=== PATIENT | male | born 1940 | race Caucasian/White ===

== ENCOUNTER 2021-04-04 06:27 | Outpatient (CLI) | payer MEDICARE, OTHER | END 2021-04-04 06:28 | disposition critical access hospital (66) | LOC: EMS 06:27 | DX: Z04.3 Encounter for examination and observation following other accident (principal); R53.1 Weakness; R53.83 Other fatigue | CPT/HCPCS: A0425; A0429 ==

== ENCOUNTER 2021-04-04 06:58 | Emergency (ER) | payer MEDICARE, OTHER ==
--- NOTE | 2021-04-04 07:18 | ED Physician Documentation ---
History of Present Illness - Stated complaint Stated Complaint: GLF - Chief complaint Chief Complaint: General - History obtained from History obtained from: Patient - Additonal information Additional information: This is an 81-year-old gentleman with history of kidney cancer, pacemaker placement about 3 weeks ago who presents with a week or so of worsening generalized weakness culminating in a fall this morning. He has had stomach upset and diarrhea. This morning he was in the bathroom trying to have a bowel movement and kind of crumpled down without injury. He denies pain or trauma. Note made of his temperature, 37.9 on triage. Although he does not endorse fevers or chills specifically he states "I have been a little cold." Also has cough and runny nose, but the runny nose is chronic. Review of Systems Ten Systems: 10 systems reviewed and negative Constitutional: reports: Chills, Fatigue. denies: Fever Nose: reports: Rhinorrhea / runny nose Throat: denies: Sore throat Respiratory: reports: Cough GI: reports: Nausea, Diarrhea. denies: Vomiting PD PAST MEDICAL HISTORY - Past Medical History Cardiovascular: Hypertension, High cholesterol : Renal insuffiency Musculoskeletal: Gout - Past Surgical History Past Surgical History: Yes Ortho: Knee replacement Cardiovascular: Valve replacement - Present Medications Home Medications: Ambulatory Orders Medication Instructions Recorded Confirmed Aspirin [Aspir 81] 12/27/14 12/27/14 Colchicine [Colcrys] 0.6 mg PO Q8H PRN #6 tablet 12/27/14 HYDROcod/ACETAM 5/325 [[place] 5/325] 1 - 2 ea PO Q6H PRN #15 tablet 12/27/14 Metoprolol Tartrate 25 mg PO DAILY 12/27/14 12/27/14 Multivitamin [Multivitamins] 12/27/14 12/27/14 Pravastatin Sodium 20 mg PO DAILY 12/27/14 12/27/14 allopurinoL [Allopurinol] 150 mg PO DAILY 12/27/14 12/27/14 gemfibroziL [Gemfibrozil] 600 mg PO DAILY 12/27/14 12/27/14 - Allergies Allergies/Adverse Reactions: Allergies Allergy/AdvReac Type Severity Reaction Status Date / Time No Known Drug Allergies Allergy Verified 04/04/21 07:03 - Social History Does the pt smoke?: No Smoking Status: Former smoker Does the pt have substance abuse?: No - Family History Family history: reports: Non contributory - POLST Patient has POLST: No PD ED PE NORMAL - Vitals Vital signs reviewed: Yes - General General: Alert and oriented X 3, No acute distress - HEENT HEENT: PERRL, EOMI - Neck Neck: Supple, no meningeal sign, No bony TTP - Cardiac Cardiac: RRR, Other (Subtle systolic murmur) - Respiratory Respiratory: No respiratory distress, Clear bilaterally - Abdomen Abdomen: Normal bowel sounds, Soft, Non tender - Back Back: No CVA TTP, No spinal TTP - Derm Derm: Normal color, Warm and dry - Extremities Extremities: No edema, No calf tenderness / cord - Neuro Neuro: Alert and oriented X 3, Normal speech, Other (Generally weak, unable to sit up unassisted.) Results - Vitals Vitals: Vital Signs - 24 hr 04/04/21 04/04/21 04/04/21 07:03 07:27 08:39 Temperature 37.9 C Heart Rate 88 70 68 Respiratory 16 22 Rate Blood Pressure 105/55 L 112/57 L O2 Saturation 96 95 04/04/21 04/04/21 04/04/21 08:41 09:16 09:30 Temperature Heart Rate 68 68 68 Respiratory 20 19 16 Rate Blood Pressure 106/53 L 110/51 L O2 Saturation 94 95 94 04/04/21 04/04/21 04/04/21 09:57 10:00 10:06 Temperature Heart Rate 65 68 68 Respiratory 15 16 16 Rate Blood Pressure 110/51 L 113/49 L 113/49 L O2 Saturation 97 97 97 04/04/21 04/04/21 04/04/21 10:30 10:59 11:00 Temperature Heart Rate 68 68 68 Respiratory 16 15 17 Rate Blood Pressure 112/56 L 112/56 L 104/52 L O2 Saturation 98 99 97 04/04/21 04/04/21 04/04/21 11:30 12:00 12:07 Temperature Heart Rate 69 69 69 Respiratory 16 16 16 Rate Blood Pressure 111/54 L 107/56 L 107/56 L O2 Saturation 100 100 100 04/04/21 04/04/21 04/04/21 12:30 13:00 13:30 Temperature Heart Rate 69 67 67 Respiratory 19 20 19 Rate Blood Pressure 116/59 L 119/59 L 115/58 L O2 Saturation 100 97 97 04/04/21 04/04/21 04/04/21 14:00 14:30 15:00 Temperature Heart Rate 67 68 68 Respiratory 19 16 20 Rate Blood Pressure 132/59 H 132/55 H 125/56 L O2 Saturation 95 98 96 04/04/21 04/04/21 15:24 15:30 Temperature 36.8 C Heart Rate 66 67 Respiratory 17 17 Rate Blood Pressure 125/56 L 123/56 L O2 Saturation 94 97 Oxygen O2 Source Room air - EKG (time done) 0740 Rate: Rate (enter#) (69) Rhythm: NSR Intervals: Prolonged [place], RBBB, Other (LAFB) QRS: LVH Ischemia: Non specific changes (Anterior T wave inversion) Compare to prior EKG: Old EKG unavailable (No priors available, could be consistent with ischemia but he does not have angina.) Computer interpretation: Agree with computer 0833 Rate: Rate (enter#) (68) Rhythm: NSR [place]: Normal Intervals: Prolonged KS QRS: Normal Ischemia: Non specific changes (less TWI than first EKG) - Labs Labs: Laboratory Tests 04/04/21 04/04/21 04/04/21 07:29 07:29 07:29 WBC 3.0 L RBC 3.35 L Hgb 9.6 L Hct 30.0 L MCV 89.6 MCH 28.7 MCHC 32.0 RDW 14.8 Plt Count 205 MPV 10.8 Neut # (Auto) Not Reportable Lymph # (Auto) Not Reportable [place] # (Auto) Not Reportable Eos # (Auto) Not Reportable Baso # (Auto) Not Reportable Absolute Nucleated RBC Not Reportable Total Counted 100 Band Neuts % (Manual) 1 Abnorm Lymph % (Manual) 0 Nucleated RBC % Not Reportable Neutrophils # (Manual) 2.0 Lymphocytes # (Manual) 0.4 L Monocytes # (Manual) 0.6 Eosinophils # (Manual) 0.0 Basophils # (Manual) 0.0 Differential Comment MANUAL DIFFERENTIAL WBC Morphology 1+ VACUOLATION Platelet Estimate NORMAL (130-450,000) Platelet Morphology NORMAL APPEARANCE RBC Morph Micro Appear 1+ HYPOCHROMASIA Sodium 131 L Potassium 4.3 Chloride 104 Carbon Dioxide 13 L Anion Gap 14.0 H BUN 101 H* Creatinine 6.6 H Estimated GFR (MDRD) 8 L Glucose 99 Lactic Acid Calcium 7.7 L Total Bilirubin 0.6 AST 28 ALT 19 Alkaline Phosphatase 64 Troponin I High Sens 140.9 H* B-Natriuretic Peptide Total Protein 5.8 L Albumin 2.4 L Globulin 3.4 Albumin/Globulin Ratio 0.7 L Nasal Adenovirus (PCR) Nasal B. parapertussis DNA (PCR) Nasal Coronavir 229E PCR Nasal Coronavir HKU1 PCR Nasal Coronavir NL63 PCR Nasal Coronavir OC43 PCR Nasal Enterovir/Rhinovir PCR Nasal Influenza B PCR Nasal Influenza A PCR Nasal Parainfluen 1 PCR Nasal Parainfluen 2 PCR Nasal Parainfluen 3 PCR Nasal Parainfluen 4 PCR Nasal RSV (PCR) Nasal B.pertussis DNA PCR Nasal C.pneumoniae (PCR) Edgar Human Metapneumo PCR Nasal M.pneumoniae (PCR) Nasal SARS-CoV-2 (PCR) 04/04/21 04/04/21 04/04/21 07:29 07:29 07:49 WBC RBC Hgb Hct MCV MCH MCHC RDW Plt Count MPV Neut # (Auto) Lymph # (Auto) [place] # (Auto) Eos # (Auto) Baso # (Auto) Absolute Nucleated RBC Total Counted Band Neuts % (Manual) Abnorm Lymph % (Manual) Nucleated RBC % Neutrophils # (Manual) Lymphocytes # (Manual) Monocytes # (Manual) Eosinophils # (Manual) Basophils # (Manual) Differential Comment WBC Morphology Platelet Estimate Platelet Morphology RBC Morph Micro Appear Sodium Potassium Chloride Carbon Dioxide Anion Gap BUN Creatinine Estimated GFR (MDRD) Glucose Lactic Acid 0.8 Calcium Total Bilirubin AST ALT Alkaline Phosphatase Troponin I High Sens B-Natriuretic Peptide 247 H Total Protein Albumin Globulin Albumin/Globulin Ratio Nasal Adenovirus (PCR) NOT DETECTED Nasal B. parapertussis DNA (PCR) NOT DETECTED Nasal Coronavir 229E PCR NOT DETECTED Nasal Coronavir HKU1 PCR NOT DETECTED Nasal Coronavir NL63 PCR NOT DETECTED Nasal Coronavir OC43 PCR NOT DETECTED Nasal Enterovir/Rhinovir PCR NOT DETECTED Nasal Influenza B PCR NOT DETECTED Nasal Influenza A PCR NOT DETECTED Nasal Parainfluen 1 PCR NOT DETECTED Nasal Parainfluen 2 PCR NOT DETECTED Nasal Parainfluen 3 PCR NOT DETECTED Nasal Parainfluen 4 PCR NOT DETECTED Nasal RSV (PCR) NOT DETECTED Nasal B.pertussis DNA PCR NOT DETECTED Nasal C.pneumoniae (PCR) NOT DETECTED Edgar Human Metapneumo PCR NOT DETECTED Nasal M.pneumoniae (PCR) NOT DETECTED Nasal SARS-CoV-2 (PCR) NOT DETECTED 04/04/21 09:38 WBC RBC Hgb Hct MCV MCH MCHC RDW Plt Count MPV Neut # (Auto) Lymph # (Auto) [place] # (Auto) Eos # (Auto) Baso # (Auto) Absolute Nucleated RBC Total Counted Band Neuts % (Manual) Abnorm Lymph % (Manual) Nucleated RBC % Neutrophils # (Manual) Lymphocytes # (Manual) Monocytes # (Manual) Eosinophils # (Manual) Basophils # (Manual) Differential Comment WBC Morphology Platelet Estimate Platelet Morphology RBC Morph Micro Appear Sodium Potassium Chloride Carbon Dioxide Anion Gap BUN Creatinine Estimated GFR (MDRD) Glucose Lactic Acid Calcium Total Bilirubin AST ALT Alkaline Phosphatase Troponin I High Sens 142.9 H* B-Natriuretic Peptide Total Protein Albumin Globulin Albumin/Globulin Ratio Nasal Adenovirus (PCR) Nasal B. parapertussis DNA (PCR) Nasal Coronavir 229E PCR Nasal Coronavir HKU1 PCR Nasal Coronavir NL63 PCR Nasal Coronavir OC43 PCR Nasal Enterovir/Rhinovir PCR Nasal Influenza B PCR Nasal Influenza A PCR Nasal Parainfluen 1 PCR Nasal Parainfluen 2 PCR Nasal Parainfluen 3 PCR Nasal Parainfluen 4 PCR Nasal RSV (PCR) Nasal B.pertussis DNA PCR Nasal C.pneumoniae (PCR) Edgar Human Metapneumo PCR Nasal M.pneumoniae (PCR) Nasal SARS-CoV-2 (PCR) PD MEDICAL DECISION MAKING - ED course ED course: 81-year-old gentleman with recent pacemaker placement presents with generalized weakness culminating in a fall that he could not get up from this morning but without injury. Examination demonstrates weakness and subtle murmur. Work-up demonstrates what looks like acute prerenal failure with acidosis. Elevated troponin and concerning EKG but without any ischemic chest pain so not specifically acted upon except that he was given aspirin and the EKG was repeated. was updated by phone. He will need transfer to a facility capable of cardiology and nephrology consultation and patient's request [facility] call [facility] to [facility] If they are full, second request would be [facility] in [place]. He was started on a bicarb drip. Both hospitals are full, but [facility] will hopefully have openings later in the day. Recheck of troponins without significant delta change. Case was discussed with the continuous conveyor screen drier at [facility], Dr. Mccartney who does not feel there is an acute coronary issue brewing and I agree. I discussed the case with the water quality specialist to the [facility] (Yahaira Ribeiro) who felt like the patient could go to any facility and recommended we look closer. I discussed with him that we already had looked at closer facilities which were at or past capacity. Accepted by the hospitalist to [facility] at approximately 11:25 AM pending bed availability, which is tenuous. The case was also presented to Dr. Orlando Gonzalez hospitalist at [facility] who will also accept pending bed availability. Bladder scan 126 suggestive against urinary retention and given that he has been in the department for quite some time suggestive for decreased urine output due to hypovolemia. Subsequently the bed was confirmed at [facility] and cobras are completed. Departure - Departure Disposition: 02 Transfer Acute Care Hosp Clinical Impression: Elevated troponin, Weakness Renal failure Qualifiers: Renal failure chronicity: acute Acute renal failure type: unspecified Qualified Code(s): N17.9 - Acute kidney failure, unspecified Condition: Serious
[2021-04-04 07:38] LABS: EOSINOPHILS % (AUTO) 0.3 %; HGB - HEMOGLOBIN 9.6 g/dL (14.0-18.0); LYMPHOCYTES % (AUTO) 10.4 %; MEAN CORPUSCULAR HEMOGLOBIN 28.7 pg (27.0-31.0); MEAN CORPUSCULAR VOLUME 89.6 fL (80.0-94.0); MEAN PLATELET VOLUME 10.8 fL (7.4-11.4); MONOCYTES % (AUTO) 13.5 %; NEUTROPHILS % (AUTO) 72.8 %; PLT - PLATELET COUNT 205 10^3/uL (130-450); RED BLOOD COUNT 3.35 10^6/uL (4.70-6.10); RED CELL DISTRIBUTION WIDTH 14.8 % (12.0-15.0)
[2021-04-04 07:55] LABS: ABNORMAL LYMPHS % (MANUAL) 0 %
[2021-04-04] MEDS ORDERED: ASPIRIN CHEW 81 MG TABLET PO STA (08:13)
[2021-04-04 08:25] LABS: ALBUMIN 2.4 g/dL (3.2-5.5); ALBUMIN/GLOBULIN RATIO 0.7 (1.0-2.2); BILIRUBIN,TOTAL 0.6 mg/dL (0.2-1.0); CALCIUM 7.7 mg/dL (8.5-10.3); CREATININE 6.6 mg/dL (0.6-1.2); POTASSIUM 4.3 mmol/L (3.5-5.0); TOTAL PROTEIN 5.8 g/dL (6.7-8.2)
[2021-04-04 08:31] LABS: BAND NEUTROPHILS % (MANUAL) 1 %; BASOPHILS % (MANUAL) 1 %; DIFFERENTIAL COMMENT MANUAL DIFFERENTIAL; LYMPHOCYTES # (MANUAL) 0.4 10^3/uL (1.5-3.5); LYMPHOCYTES % (MANUAL) 14 %; MONOCYTES # (MANUAL) 0.6 10^3/uL (0.0-1.0); PLATELET ESTIMATE, MANUAL NORMAL (130-450,000) (NORMAL); PLATELET MORPHOLOGY NORMAL APPEARANCE (NORMAL); RBC MORPHOLOGY (MULTIPLE) 1+ HYPOCHROMASIA (NORMAL)
[2021-04-04 08:32] LABS: WBC MORPHOLOGY (MULTIPLE) 1+ VACUOLATION (NORMAL)
[2021-04-04 08:44] LABS: B. PARAPERTUSSIS- RESP PCR PAN NOT DETECTED; B. PERTUSSIS- RESP PCR PANEL NOT DETECTED; C. PNEUMONIAE- RESP PCR PANEL NOT DETECTED; CORONAVIRUS 229E-RESP PCR NOT DETECTED; CORONAVIRUS HKU1-RESP PCR NOT DETECTED; CORONAVIRUS NL63-RESP PCR NOT DETECTED; CORONAVIRUS OC43-RESP PCR NOT DETECTED; HUMAN METAPNEUMOVIRUS NOT DETECTED; INFLUENZA A- RESP PCR PANEL NOT DETECTED; INFLUENZA B - RESP PCR PANEL NOT DETECTED; M. PNEUMONIAE- RESP PCR PANEL NOT DETECTED; PARAINFLUENZA VIRUS 1 NOT DETECTED; PARAINFLUENZA VIRUS 2 NOT DETECTED; PARAINFLUENZA VIRUS 3 NOT DETECTED; PARAINFLUENZA VIRUS 4 NOT DETECTED; RHINOVIRUS/ENTEROVIRUS NOT DETECTED; RSV- RESP PCR PANEL NOT DETECTED; SARS-CoV-2 -RESP PCR PANEL NOT DETECTED
[2021-04-04] MEDS ORDERED: SODIUM BICARBONATE 150 MEQ in DEXTROSE 5% 1,000 ML IV SCH ×2 (09:00→14:00)
--- NOTE | 2021-04-04 09:31 | XRAY Report ---
PROCEDURE: Chest 1 View X-Ray INDICATIONS: renal failure, poss chf TECHNIQUE: One view of the chest was acquired. COMPARISON: None FINDINGS: Surgical changes and devices: Sternotomy and an aortic valve prosthesis can be seen. A pacer device can be seen. Lungs and pleura: An incomplete inspiratory result is noted, with low lung volumes and crowding of t he vascular markings. No focal infiltrates are seen. No large pneumothorax or large pleural effusion can be seen. There is elevation of the right hemidiaphragm. Mediastinum: Mediastinal contours appear normal. Heart size is mildly enlarged. Calcification is s een of the aortic arch. Bones and chest wall: No suspicious bony lesions. Age-appropriate degenerative changes are seen. No displaced rib fractures are seen. Overlying soft tissues appear unremarkable. IMPRESSION: Mild thyromegaly. Clear lungs, without pulmonary edema seen at this time. Low lung volumes. Elevation of the right hemidiaphragm noted. No displaced rib fractures are seen. No pneumothorax. Postoperative and degenerative changes are seen. Reviewed by: Esteban Roach MD on 04/04/2021 8:30 AM [facility] Approved by: Esteban Roach MD on 04/04/2021 8:30 AM [facility] Station ID: [id number]
[2021-04-04 21:05] VITALS: BP 130/56
== END 2021-04-04 21:39 | disposition short-term general hospital (02) ==
LOC: EDUNIT# → ED 06:58
DX: N17.9 Acute kidney failure, unspecified (principal); R53.1 Weakness; R79.89 Other specified abnormal findings of blood chemistry; E86.1 Hypovolemia; I45.2 Bifascicular block; I44.0 Atrioventricular block, first degree; I10 Essential (primary) hypertension; Z95.0 Presence of cardiac pacemaker; Z95.2 Presence of prosthetic heart valve; Z79.82 Long term (current) use of aspirin; Z85.528 Personal history of other malignant neoplasm of kidney; Z87.891 Personal history of nicotine dependence; Z20.822 Contact with and (suspected) exposure to COVID-19
CPT/HCPCS: 36415; 51798; 71045; 80053; 83605; 83880; 84484; 85025; 87040; 87631; 93005; 96365; 96366; 99285; A9270; 0202U

== ENCOUNTER 2022-07-05 14:38 | Emergency (ER) | payer MEDICARE, OTHER ==
[2022-07-05 15:39] LABS: ALBUMIN 3.2 g/dL (3.2-5.5); ALBUMIN/GLOBULIN RATIO 0.8 (1.0-2.2); BILIRUBIN,TOTAL 0.6 mg/dL (0.2-1.0); CALCIUM 8.3 mg/dL (8.5-10.3); CREATININE 3.8 mg/dL (0.6-1.2); POTASSIUM 4.5 mmol/L (3.5-5.0); TOTAL PROTEIN 7.1 g/dL (6.7-8.2)
[2022-07-05 15:41] LABS: EOSINOPHILS # (AUTO) 0.2 10^3/uL (0.0-0.7); EOSINOPHILS % (AUTO) 6.7 %; LYMPHOCYTES # (AUTO) 0.5 10^3/uL (1.5-3.5); LYMPHOCYTES % (AUTO) 14.2 %; MEAN CORPUSCULAR HEMOGLOBIN 28.6 pg (27.0-31.0); MEAN CORPUSCULAR HGB CONC 31.7 g/dL (32.0-36.0); MEAN CORPUSCULAR VOLUME 90.3 fL (80.0-94.0); MONOCYTES # (AUTO) 0.4 10^3/uL (0.0-1.0); MONOCYTES % (AUTO) 10.3 %; NEUTROPHILS # (AUTO) 2.5 10^3/uL (1.5-6.6); NEUTROPHILS % (AUTO) 68.2 %; PLT - PLATELET COUNT 88 10^3/uL (130-450); RED BLOOD COUNT 2.06 10^6/uL (4.70-6.10); RED CELL DISTRIBUTION WIDTH 17.3 % (12.0-15.0); WHITE BLOOD COUNT 3.6 x10^3/uL (4.8-10.8)
[2022-07-05 15:45] LABS: HCT - HEMATOCRIT 18.6 % (42.0-52.0); HGB - HEMOGLOBIN 5.9 g/dL (14.0-18.0); SLIDE REVIEW? Indicated
--- OUTSIDE RECORDS SUMMARY | 2022-07-05 15:46 | EXTERNAL MEDICAL SUMMARY RPT | Continuity of Care Document ---
:1940 Author Organization [facility] Address [address] [place] [address] Phone Care Team Providers Name Role Phone Unavailable Unavailable Unavailable Ann Marie Richard, Zac Unavailable Unavailable Melvina Patient Registrar, Marry Unavailable Nguyen arias Elsa, Provider Unavailable Unavailable Allergies No information. Encounters No information. Functional Status No information. Immunizations No information. Medications date description facility 2022-04-23 00:00 molnupiravir All 2022-04-23 00:00 molnupiravir All 2022-04-27 00:00 molnupiravir All 2022-04-23 00:00 finasteride All 2022-04-23 00:00 finasteride All 2022-04-27 00:00 finasteride All 2022-04-23 00:00 aspirin All 2022-04-23 00:00 aspirin All 2022-04-27 00:00 aspirin All 2022-04-23 00:00 furosemide All 2022-04-23 00:00 furosemide All 2022-04-27 00:00 furosemide All 2022-04-23 00:00 metoprolol succinate All 2022-04-23 00:00 metoprolol succinate All 2022-04-27 00:00 metoprolol succinate All 2022-04-23 00:00 metoprolol succinate All 2022-04-23 00:00 metoprolol succinate All 2022-04-27 00:00 metoprolol succinate All 2022-04-23 00:00 allopurinol All 2022-04-23 00:00 allopurinol All 2022-04-27 00:00 allopurinol All 2022-04-23 00:00 allopurinol All 2022-04-23 00:00 allopurinol All 2022-04-27 00:00 allopurinol All 2022-04-23 00:00 amoxicillin-pot clavulanate All 2022-04-23 00:00 amoxicillin-pot clavulanate All 2022-04-23 00:00 amoxicillin-pot clavulanate All 2022-04-23 00:00 amoxicillin-pot clavulanate All 2022-04-23 00:00 rivaroxaban All 2022-04-23 00:00 rivaroxaban All 2022-04-27 00:00 rivaroxaban All 2022-04-23 00:00 molnupiravir All 2022-04-23 00:00 molnupiravir All 2022-04-27 00:00 molnupiravir All 2022-04-23 00:00 aspirin All 2022-04-23 00:00 aspirin All 2022-04-27 00:00 aspirin All 2022-04-23 00:00 tamsulosin All 2022-04-23 00:00 tamsulosin All 2022-04-27 00:00 tamsulosin All 2022-04-23 00:00 rivaroxaban All 2022-04-23 00:00 rivaroxaban All 2022-04-27 00:00 rivaroxaban All 2022-04-23 00:00 allopurinol All 2022-04-23 00:00 allopurinol All 2022-04-27 00:00 allopurinol All 2022-04-23 00:00 allopurinol All 2022-04-23 00:00 allopurinol All 2022-04-27 00:00 allopurinol All 2022-04-23 00:00 amlodipine All 2022-04-23 00:00 amlodipine All 2022-04-27 00:00 amlodipine All 2022-04-23 00:00 benzonatate All 2022-04-23 00:00 benzonatate All 2022-04-23 00:00 molnupiravir All 2022-04-23 00:00 molnupiravir All 2022-04-27 00:00 molnupiravir All 2022-04-23 00:00 amlodipine All 2022-04-23 00:00 amlodipine All 2022-04-27 00:00 amlodipine All 2022-04-23 00:00 amlodipine All 2022-04-23 00:00 amlodipine All 2022-04-27 00:00 amlodipine All 2022-04-23 00:00 molnupiravir All 2022-04-23 00:00 molnupiravir All 2022-04-27 00:00 molnupiravir All 2022-04-23 00:00 finasteride All 2022-04-23 00:00 finasteride All 2022-04-27 00:00 finasteride All 2022-04-23 00:00 benzonatate All 2022-04-23 00:00 benzonatate All 2022-04-23 00:00 amlodipine All 2022-04-23 00:00 amlodipine All 2022-04-27 00:00 amlodipine All 2022-04-23 00:00 finasteride All 2022-04-23 00:00 finasteride All 2022-04-27 00:00 finasteride All 2022-04-23 00:00 furosemide All 2022-04-23 00:00 furosemide All 2022-04-27 00:00 furosemide All 2022-04-23 00:00 metoprolol succinate All 2022-04-23 00:00 metoprolol succinate All 2022-04-27 00:00 metoprolol succinate All 2022-04-23 00:00 metoprolol succinate All 2022-04-23 00:00 metoprolol succinate All 2022-04-27 00:00 metoprolol succinate All 2022-04-23 00:00 amlodipine All 2022-04-23 00:00 amlodipine All 2022-04-27 00:00 amlodipine All 2022-04-23 00:00 amlodipine All 2022-04-23 00:00 amlodipine All 2022-04-27 00:00 amlodipine All 2022-04-23 00:00 furosemide All 2022-04-23 00:00 furosemide All 2022-04-27 00:00 furosemide All 2022-04-23 00:00 atorvastatin All 2022-04-23 00:00 atorvastatin All 2022-04-27 00:00 atorvastatin All 2022-04-23 00:00 benzonatate All 2022-04-23 00:00 benzonatate All 2022-04-23 00:00 atorvastatin All 2022-04-23 00:00 atorvastatin All 2022-04-27 00:00 atorvastatin All 2022-04-23 00:00 rivaroxaban All 2022-04-23 00:00 rivaroxaban All 2022-04-27 00:00 rivaroxaban All 2022-04-23 00:00 finasteride All 2022-04-23 00:00 finasteride All 2022-04-27 00:00 finasteride All 2022-04-23 00:00 tamsulosin All 2022-04-23 00:00 tamsulosin All 2022-04-27 00:00 tamsulosin All 2022-04-23 00:00 amlodipine All 2022-04-23 00:00 amlodipine All 2022-04-27 00:00 amlodipine All 2022-04-23 00:00 amlodipine All 2022-04-23 00:00 amlodipine All 2022-04-27 00:00 amlodipine All 2022-04-23 00:00 amoxicillin-pot clavulanate All 2022-04-23 00:00 amoxicillin-pot clavulanate All 2022-04-23 00:00 atorvastatin All 2022-04-23 00:00 atorvastatin All 2022-04-27 00:00 atorvastatin All 2022-04-23 00:00 atorvastatin All 2022-04-23 00:00 atorvastatin All 2022-04-27 00:00 atorvastatin All 2022-04-23 00:00 aspirin All 2022-04-23 00:00 aspirin All 2022-04-27 00:00 aspirin All 2022-04-23 00:00 tamsulosin All 2022-04-23 00:00 tamsulosin All 2022-04-27 00:00 tamsulosin All 2022-04-23 00:00 allopurinol All 2022-04-23 00:00 allopurinol All 2022-04-27 00:00 allopurinol All 2022-04-23 00:00 allopurinol All 2022-04-23 00:00 allopurinol All 2022-04-27 00:00 allopurinol All 2022-04-23 00:00 benzonatate All 2022-04-23 00:00 benzonatate All 2022-04-23 00:00 metoprolol succinate All 2022-04-23 00:00 metoprolol succinate All 2022-04-27 00:00 metoprolol succinate All 2022-04-23 00:00 metoprolol succinate All 2022-04-23 00:00 metoprolol succinate All 2022-04-27 00:00 metoprolol succinate All 2022-04-23 00:00 amoxicillin-pot clavulanate All 2022-04-23 00:00 amoxicillin-pot clavulanate All 2022-04-23 00:00 rivaroxaban All 2022-04-23 00:00 rivaroxaban All 2022-04-27 00:00 rivaroxaban All 2022-04-23 00:00 tamsulosin All 2022-04-23 00:00 tamsulosin All 2022-04-27 00:00 tamsulosin All 2022-04-23 00:00 allopurinol All 2022-04-23 00:00 allopurinol All 2022-04-27 00:00 allopurinol All 2022-04-23 00:00 allopurinol All 2022-04-23 00:00 allopurinol All 2022-04-27 00:00 allopurinol All 2022-04-23 00:00 metoprolol succinate All 2022-04-23 00:00 metoprolol succinate All 2022-04-27 00:00 metoprolol succinate All 2022-04-23 00:00 metoprolol succinate All 2022-04-23 00:00 metoprolol succinate All 2022-04-27 00:00 metoprolol succinate All 2022-04-23 00:00 furosemide All 2022-04-23 00:00 furosemide All 2022-04-27 00:00 furosemide All Problems date description facility 2022-04-23 00:00 Chronic sinusitis All 2022-04-23 00:00 Chronic sinusitis All 2022-04-23 00:00 Unspecified sinusitis (chronic) All 2022-04-23 00:00 Unspecified sinusitis (chronic) All 2022-04-23 00:00 Cough All 2022-04-23 00:00 Cough All 2022-04-23 00:00 Chronic sinusitis, unspecified All 2022-04-23 00:00 Chronic sinusitis, unspecified All 2022-04-23 00:00 Other specified cough All 2022-04-23 00:00 Other specified cough All Procedures date description facility 2022-04-23 00:00 Visit Code Hold All 2022-04-23 00:00 Visit Code Hold All 2022-04-23 00:00 COVID, FLU A+B Antigen (In Clinic Free Test) All 2022-04-23 00:00 COVID, FLU A+B Antigen (In Clinic Free Test) All Results/Labs No information. Social History date description facility 2022-04-23 00:00 Unknown if ever smoked All 2022-04-23 00:00 Unknown if ever smoked All 2022-04-27 00:00 Unknown if ever smoked All Vital Signs date measurement value units 2022-04-23 00:00 BMI 30.67 kg/m2 2022-04-23 00:00 BP_diastolic 93 mmHg 2022-04-23 00:00 BP_systolic 158 mmHg 2022-04-23 00:00 heart_rate 93 /min 2022-04-23 00:00 height_metric 177.8 cm 2022-04-23 00:00 height_standard 70 in 2022-04-23 00:00 respiration_rate 17 /min 2022-04-23 00:00 temperature_metric 36.28 C 2022-04-23 00:00 temperature_standard 97.3 F 2022-04-23 00:00 weight_metric 96.62 kg 2022-04-23 00:00 weight_standard 213 lb
--- NOTE | 2022-07-05 16:06 | ED Physician Documentation ---
History of Present Illness - Stated complaint Stated Complaint: LOW BLOOD COUNT - Chief complaint Chief Complaint: General - History obtained from History obtained from: Patient, Family - History of Present Illness Timing: Today Pain level max: 0 Pain level now: 0 - Additonal information Additional information: Patient is an 82-year-old male who presents to the emergency department stating that he was at [facility] for approximately 2 weeks, was discharged about a week ago. He states that he received approximately 9 units of blood during that time and had "every test you can think of". He states they could not find a reason for why he was anemic. He states that he went to [facility] today and had blood work done, they called him and told him to go to an emergency department for evaluation. Patient is currently asymptomatic. He is unsure why he is here. Review of Systems Constitutional: denies: Fever, Chills Nose: denies: Rhinorrhea / runny nose, Congestion Throat: denies: Sore throat Cardiac: denies: Chest pain / pressure, Palpitations Respiratory: denies: Cough GI: denies: Abdominal Pain, Vomiting, Diarrhea Skin: denies: Rash Musculoskeletal: denies: Neck pain, Back pain Neurologic: denies: Headache PD PAST MEDICAL HISTORY - Past Medical History Cardiovascular: Hypertension, High cholesterol : Renal insuffiency Musculoskeletal: Gout - Past Surgical History Past Surgical History: Yes Ortho: Knee replacement Cardiovascular: Valve replacement - Present Medications Home Medications: Ambulatory Orders Medication Instructions Recorded Confirmed Aspirin [Aspir 81] 12/27/14 12/27/14 Colchicine [Colcrys] 0.6 mg PO Q8H PRN #6 tablet 12/27/14 Multivitamin [Multivitamins] 12/27/14 12/27/14 Pravastatin Sodium 20 mg PO DAILY 12/27/14 12/27/14 allopurinoL [Allopurinol] 150 mg PO DAILY 12/27/14 12/27/14 gemfibroziL [Gemfibrozil] 600 mg PO DAILY 12/27/14 12/27/14 Apixaban [Eliquis] 2.5 mg PO BID 07/05/22 07/05/22 Metoprolol Succinate [Toprol Xl] 50 mg PO DAILY 07/05/22 07/05/22 Pantoprazole [Protonix] 40 mg PO DAILY 07/05/22 07/05/22 calcitrioL [Rocaltrol] 0.25 mcg PO DAILY 07/05/22 07/05/22 - Allergies Allergies/Adverse Reactions: Allergies Allergy/AdvReac Type Severity Reaction Status Date / Time No Known Drug Allergies Allergy Verified 07/05/22 16:21 - Social History Does the pt smoke?: No Smoking Status: Former smoker Does the pt have substance abuse?: No - POLST Patient has POLST: No PD ED PE NORMAL - Vitals Vital signs reviewed: Yes - General General: Alert and oriented X 3, No acute distress - HEENT HEENT: Moist mucous membranes - Neck Neck: Supple, no meningeal sign - Cardiac Cardiac: RRR, Strong equal pulses - Respiratory Respiratory: No respiratory distress, Clear bilaterally - Abdomen Abdomen: Soft, Non tender, Non distended - Back Back: No spinal TTP - Derm Derm: Warm and dry, No rash - Neuro Neuro: Alert and oriented X 3 - Psych Psych: Normal mood, Normal affect Results - Vitals Vitals: Vital Signs - 24 hr 07/05/22 07/05/22 07/05/22 14:49 16:12 18:01 Temperature 36.3 C L 36.9 C Heart Rate 82 64 Heart Rate [ 64 Monitoring electrodes] Respiratory 16 9 L 15 Rate Blood Pressure 116/62 123/60 Blood Pressure 115/71 [Left Brachial artery] O2 Saturation 100 100 99 07/05/22 07/05/22 07/05/22 18:23 19:00 19:51 Temperature 37.1 C 37.4 C Heart Rate Heart Rate [ 64 64 64 Monitoring electrodes] Respiratory 15 17 16 Rate Blood Pressure Blood Pressure 113/54 L 128/47 L 137/63 H [Left Brachial artery] O2 Saturation 99 100 100 07/05/22 07/05/22 07/05/22 20:12 20:18 20:27 Temperature 37.4 C 37.4 C Heart Rate 65 Heart Rate [ 62 65 Monitoring electrodes] Respiratory 17 16 17 Rate Blood Pressure 115/58 L Blood Pressure 115/58 L 118/64 [Left Brachial artery] O2 Saturation 99 100 99 07/05/22 07/05/22 21:00 21:38 Temperature 37.1 C 37.1 C Heart Rate Heart Rate [ 62 64 Monitoring electrodes] Respiratory 18 18 Rate Blood Pressure Blood Pressure 137/66 H 128/59 L [Left Brachial artery] O2 Saturation 100 100 Oxygen O2 Source Room air - Labs Labs: Laboratory Tests 07/05/22 07/05/22 07/05/22 15:20 15:20 15:20 WBC 3.6 L RBC 2.06 L Hgb 5.9 L* Hct 18.6 L* MCV 90.3 MCH 28.6 MCHC 31.7 L RDW 17.3 H Plt Count 88 L MPV 10.0 Neut # (Auto) 2.5 Lymph # (Auto) 0.5 L [place] # (Auto) 0.4 Eos # (Auto) 0.2 Baso # (Auto) 0.0 Absolute Nucleated RBC 0.00 Nucleated RBC % 0.0 Manual Slide Review Indicated Platelet Estimate DECREASED (<130,000) Platelet Morphology NORMAL APPEARANCE RBC Morph Micro Appear 2+ POIKILOCYTOSIS Sodium 139 Potassium 4.5 Chloride 109 Carbon Dioxide 23 Anion Gap 7.0 BUN 74 H Creatinine 3.8 H Estimated GFR (MDRD) 15 L Glucose 95 Calcium 8.3 L Total Bilirubin 0.6 AST 10 ALT 12 Alkaline Phosphatase 83 Total Protein 7.1 Albumin 3.2 Globulin 3.9 Albumin/Globulin Ratio 0.8 L Blood Type Blood Type Recheck A POSITIVE Antibody Screen Crossmatch IS Only 07/05/22 16:28 WBC RBC Hgb Hct MCV MCH MCHC RDW Plt Count MPV Neut # (Auto) Lymph # (Auto) [place] # (Auto) Eos # (Auto) Baso # (Auto) Absolute Nucleated RBC Nucleated RBC % Manual Slide Review Platelet Estimate Platelet Morphology RBC Morph Micro Appear Sodium Potassium Chloride Carbon Dioxide Anion Gap BUN Creatinine Estimated GFR (MDRD) Glucose Calcium Total Bilirubin AST ALT Alkaline Phosphatase Total Protein Albumin Globulin Albumin/Globulin Ratio Blood Type A POSITIVE Blood Type Recheck Antibody Screen NEGATIVE Crossmatch IS Only See Detail PD Medical Decision Making - ED course Complexity details: reviewed results, re-evaluated patient, considered differential, d/w patient, d/w analytics consultant ED course: I discussed the case with his help desk coordinator, Dr. Bansal. He states that the patient had a negative endoscopy, colonoscopy and bone marrow biopsy. He suspects that the pancytopenia is secondary to his history of renal disease. He is considering starting the patient on erythropoietin. He requests 2 units of blood be given today. 2 units of packed red blood cells were given. Patient tolerated well. No complications. No shortness of breath. No hypoxia. Patient feels better. We will have him follow-up with his doctor for further care. Patient counseled regarding signs and symptoms for which I believe and urgent re-evaluation would be necessary. Patient with good understanding of and agreement to plan and is comfortable going home at this time This document was made in part using voice recognition software. While efforts are made to proofread this document, sound alike and grammatical errors may occur. Departure - Departure Disposition: 01 Home, Self Care Clinical Impression: Anemia Qualifiers: Anemia type: unspecified type Qualified Code(s): D64.9 - Anemia, unspecified Condition: Good Instructions: ED Anemia Type Not Specified Follow-Up: HEIDY BANSAL MD [Physician No Access] - Within 3 Days Comments: Please follow-up with Dr. Bansal for further care. I discussed with him that you may be able to obtain outpatient blood transfusions and EPO at our [facility]. If he would like to pursue you having further treatment here at our [facility], an order can be faxed to them at . You received 2 units of blood tonight. Please return if you worsen. Discharge Date/Time: 07/05/22 21:48
[2022-07-05 16:15] LABS: PLATELET ESTIMATE, MANUAL DECREASED (<130,000) (NORMAL); PLATELET MORPHOLOGY NORMAL APPEARANCE (NORMAL)
[2022-07-05 21:39] VITALS: BP 128/59
== END 2022-07-05 21:48 | disposition home or self-care (01) ==
LOC: ED 14:38
DX: D64.9 Anemia, unspecified (principal); I12.9 Hypertensive chronic kidney disease with stage 1 through stage 4 chronic kidney disease, or unspecified chronic kidney disease; N18.9 Chronic kidney disease, unspecified; E78.00 Pure hypercholesterolemia, unspecified; Z79.82 Long term (current) use of aspirin; Z79.899 Other long term (current) drug therapy; Z87.891 Personal history of nicotine dependence
CPT/HCPCS: 36415; 36430; 80053; 85025; 86850; 86900; 86901; 86920; 99284; 99285; P9016